=== PATIENT | male | born 1980 | race African-American/Black ===

== ENCOUNTER 2018-03-10 22:44 | Emergency (ER) | payer MEDICAID ==
[~2018-03-10] VITALS: Ht 177.8 cm; Wt 104.3 kg
[~2018-03-10 22:44] MED LIST: METR500T8 PO; PEPTO PO; RANI-281 PO; TETR500C PO
[2018-03-10 22:53] VITALS: BP_SYST 144
[2018-03-10] MEDS ORDERED: NACL 0.9% 1,000 ML IV ONE (22:54)
[2018-03-10] MEDS ORDERED: ASPIRIN 81 MG TAB.CHEW PO ONE (23:00)
[2018-03-10] MEDS ORDERED: LORazepam 2 MG/ML VIAL (FOR ER USE) IVP ONE (23:15)
[2018-03-10] MEDS ORDERED: ONDANSETRON HCL 4 MG/2 ML VIAL IVP ONE (23:30)
[2018-03-11 00:06] LABS: BASOPHILS # (AUTO) 0.1 K/uL (0.0-0.2); BASOPHILS % (AUTO) 0.6 % (0.0-2.0); EOSINOPHILS % (AUTO) 0.2 % (0.0-4.0); HEMOGLOBIN 16.5 g/dL (14.0-18.0); LYMPHOCYTES # (AUTO) 1.1 K/uL (1.0-5.5); LYMPHOCYTES % (AUTO) 6.9 % (20.5-51.5); MEAN CORPUSCULAR HEMOGLOBIN 30 pg (27-31); MEAN CORPUSCULAR HGB CONC 34 % (32-36); MEAN CORPUSCULAR VOLUME 87 fL (79.0-98.0); MONOCYTES # (AUTO) 0.2 K/uL (0.0-1.0); MONOCYTES % (AUTO) 1.5 % (1.7-9.3); NEUTROPHILS % (AUTO) 90.8 % (40.0-70.0); PLATELET COUNT (AUTO) 310 K/uL (130-430); RED BLOOD CELL COUNT(AUTO) 5.49 MIL/uL (4.2-6.2); RED CELL DISTRIBUTION WIDTH 12.8 % (9.0-15.0); WHITE BLOOD COUNT (AUTO) 15.4 K/uL (4.8-10.8)
[2018-03-11 00:36] LABS: ANION GAP 12 (5-15); CHLORIDE 103 mmol/L (98-107); CREATININE 1.09 mg/dL (0.55-1.30); GLUCOSE 194 mg/dL (70-99); SODIUM SERUM 140 mmol/L (136-145); UREA NITROGEN, BLOOD 13 mg/dL (8-21)
[2018-03-11 00:47] LABS: ALANINE AMINOTRANSFERASE 51 U/L (12-78); ALBUMIN 4.1 g/dL (3.4-4.8); ASPARTATE AMINOTRANSFERASE 31 U/L (10-37); TOTAL BILIRUBIN 0.6 mg/dL (0.0-1.0)
[2018-03-11 00:49] LABS: GFR AFRICAN AMERICAN 97 mL/min (>90); POTASSIUM 2.9 mmol/L (3.5-5.1)
[2018-03-11] MEDS ORDERED: POTASSIUM CHLORIDE 20 MEQ TAB.PRT.SR PO ONE (01:00)
[2018-03-11] MEDS ORDERED: LORazepam 2 MG/ML VIAL (FOR ER USE) IVP ONE (02:45)
[2018-03-11 03:21] VITALS: BP_SYST 139
== END 2018-03-11 03:21 | disposition home or self-care (01) ==
LOC: SED 22:44
DX: F45.8 Other somatoform disorders (principal); R10.32 Left lower quadrant pain; Z79.899 Other long term (current) drug therapy
CPT/HCPCS: 36415; 71045; 74176; 76870; 80053; 84484; 85025; 85610; 85730; 93005 ×2; 96374; 96375; 96376; 99285; J2060 ×2; J2405; J7030

== ENCOUNTER 2018-08-16 11:34 | Emergency (ER) | payer SELFPAY ==
[~2018-08-16] VITALS: Ht 180.3 cm; Wt 104.3 kg
[~2018-08-16 11:34] MED LIST changes: +METR500T4 PO; -METR500T8 PO
[2018-08-16 11:42] VITALS: BP_SYST 167
[2018-08-16] MEDS ORDERED: KETOROLAC TROMETHAMINE 60 MG/2 ML VIAL IM ONE (12:15)
[2018-08-16] MEDS ORDERED: cloNIDine HCL 0.1 MG TABLET PO ONE (12:30)
[2018-08-16 12:45] LABS: BASOPHILS % (AUTO) 0.8 % (0.0-2.0); EOSINOPHILS % (AUTO) 0.8 % (0.0-4.0); HEMATOCRIT 45.8 % (36-54); HEMOGLOBIN 15.6 g/dL (14.0-18.0); LYMPHOCYTES # (AUTO) 1.7 K/uL (1.0-5.5); LYMPHOCYTES % (AUTO) 26.9 % (20.5-51.5); MEAN CORPUSCULAR HEMOGLOBIN 30 pg (27-31); MEAN CORPUSCULAR HGB CONC 34 % (32-36); MEAN CORPUSCULAR VOLUME 87 fL (79.0-98.0); MONOCYTES # (AUTO) 0.5 K/uL (0.0-1.0); MONOCYTES % (AUTO) 8.1 % (1.7-9.3); NEUTROPHILS % (AUTO) 63.4 % (40.0-70.0); PLATELET COUNT (AUTO) 279 K/uL (130-430); RED BLOOD CELL COUNT(AUTO) 5.28 MIL/uL (4.2-6.2); RED CELL DISTRIBUTION WIDTH 12.5 % (9.0-15.0); WHITE BLOOD COUNT (AUTO) 6.2 K/uL (4.8-10.8)
[2018-08-16 13:00] LABS: CALCIUM 8.5 mg/dL (8.4-11.0); CREATININE 1.08 mg/dL (0.55-1.30); POTASSIUM 3.3 mmol/L (3.5-5.1)
[2018-08-16 13:06] LABS: ALBUMIN 3.7 g/dL (3.4-4.8); TOTAL BILIRUBIN 0.5 mg/dL (0.0-1.0)
[2018-08-16 13:36] LABS: CKMB RELATIVE INDEX 0.4 (0.0-2.9); CREATINE KINASE MB 2.9 ng/mL (0-3.6)
[2018-08-16 13:57] VITALS: BP_SYST 154
== END 2018-08-16 13:57 | disposition home or self-care (01) ==
LOC: SED 11:34
DX: R07.89 Other chest pain (principal); I10 Essential (primary) hypertension; F17.200 Nicotine dependence, unspecified, uncomplicated; Z79.899 Other long term (current) drug therapy
CPT/HCPCS: 36415; 71045; 80053; 82550; 82553; 83880; 84484; 85025; 96372; 99283; J1885; 93005

== ENCOUNTER 2019-04-16 19:42 | Inpatient (IN) | payer OTHER ==
[~2019-04-16] VITALS: Ht 180.3 cm; Wt 99.5 kg
[~2019-04-16 19:42] MED LIST changes: +METR-154 PO; -METR500T4 PO; +TETR-65 PO; -TETR500C PO
[2019-04-16 19:56] VITALS: BP_SYST 204
[2019-04-16] MEDS ORDERED: ASPIRIN 81 MG TAB.CHEW PO ONE ×2 (20:00→20:45)
[2019-04-16] MEDS ORDERED: NITROGLYCERIN 0.4 MG TAB.SUBL SL ONE (20:00)
[2019-04-16] MEDS ORDERED: ASPIRIN 325 MG TABLET PO ONE (20:00)
[2019-04-16 20:17] LABS: BASOPHILS # (AUTO) 0.1 K/uL (0.0-0.2); BASOPHILS % (AUTO) 0.4 % (0.0-2.0); HEMATOCRIT 47.6 % (36-54); HEMOGLOBIN 16.3 g/dL (14.0-18.0); LYMPHOCYTES # (AUTO) 0.9 K/uL (1.0-5.5); LYMPHOCYTES % (AUTO) 7.3 % (20.5-51.5); MEAN CORPUSCULAR HEMOGLOBIN 30 pg (27-31); MEAN CORPUSCULAR HGB CONC 34 % (32-36); MEAN CORPUSCULAR VOLUME 88 fL (79.0-98.0); MONOCYTES # (AUTO) 0.2 K/uL (0.0-1.0); MONOCYTES % (AUTO) 1.5 % (1.7-9.3); NEUTROPHILS # (AUTO) 10.9 K/uL (1.8-7.7); NEUTROPHILS % (AUTO) 90.8 % (40.0-70.0); PLATELET COUNT (AUTO) 298 K/uL (130-430); RED BLOOD CELL COUNT(AUTO) 5.42 MIL/uL (4.2-6.2); RED CELL DISTRIBUTION WIDTH 13.7 % (9.0-15.0)
[2019-04-16] MEDS ORDERED: MORPHINE 2 MG/ML INJ. SYRINGE IVP ONE ×2 (20:30→20:45)
[2019-04-16 20:34] LABS: ALBUMIN 4.2 g/dL (3.4-4.8); CALCIUM 9.2 mg/dL (8.4-11.0); CREATININE 1.16 mg/dL (0.55-1.30); POTASSIUM 3.3 mmol/L (3.5-5.1); PROTHROMBIN TIME 9.8 SECS (9.5-12.5); TOTAL BILIRUBIN 0.5 mg/dL (0.0-1.0)
[2019-04-16] MEDS ORDERED: ONDANSETRON HCL 4 MG/2 ML VIAL IVP ONE (20:45)
[2019-04-16] MEDS ORDERED: ASPIRIN 81 MG TAB.CHEW ONE (20:53)
[2019-04-16 20:57] LABS: CKMB RELATIVE INDEX 0.6 (0.0-2.9); CREATINE KINASE MB 3.4 ng/mL (0-3.6)
[2019-04-16] MEDS ORDERED: NACL 0.9% 1,000 ML IV ONE (21:45)
[2019-04-16] MEDS ORDERED: MORPHINE 4 MG/ML INJ. SYRINGE IVP ONE (21:45)
[2019-04-16] MEDS ORDERED: AMLO5TAB4 PO (23:44)
[2019-04-17] VITALS (7 sets, daily range): BP systolic 144–190
[2019-04-17] MEDS ORDERED: fentaNYL CITRATE/PF 100 MCG/2 ML AMP IVP ONE (00:30)
[2019-04-17 00:32] LABS: BILIRUBIN,URINE NEGATIVE (NEGATIVE); BLOOD, URINE 1+ (NEGATIVE); CLARITY/URINE HAZY (CLEAR); COLOR,URINE YELLOW (YELLOW); GLUCOSE,URINE 1+ (NEGATIVE); KETONES,URINE 2+ (NEGATIVE); LEUKOCYTE ESTERASE ,URINE NEGATIVE (NEGATIVE); NITRITE, URINE NEGATIVE (NEGATIVE); PH,URINE 7.5 (5.0-8.0); PROTEIN URINE TRACE (NEGATIVE); UROBILINOGEN,URINE 0.2 (0.2-1.0)
[2019-04-17 00:42] LABS: BACTERIA,URINE MODERATE /HPF (None Seen); WBC,URINE 0-3 /HPF (0-3)
[2019-04-17 01:05] LABS: BARBITURATE, URINE NEGATIVE (NEG <=200); BENZODIAZEPINE, URINE NEGATIVE (NEG <=150); CANNABINOID, URINE POSITIVE (NEG <=50); COCAINE, URINE NEGATIVE (NEG <=150); METHAMPHETAMINES SCREEN,URINE NEGATIVE (NEG <=500); OPIATE, URINE NEGATIVE (NEG <=100); PHENCYCLIDINE SCREEN,URINE NEGATIVE (NEG <=25); UR TRICYCLIC ANTIDEPRESSANTS NEGATIVE (NEG <=300); URINE AMPHETAMINE NEGATIVE (NEG <=500); URINE METHADONE NEGATIVE (NEG <=200); URINE OXYCODONE SCREEN NEGATIVE (NEG <=100); URINE PROPOXYPHENE SCREEN NEGATIVE (NEG <=300)
[2019-04-17] MEDS ORDERED: hydrALAZINE HCL 20 MG/ML VIAL IVP ONE (01:15)
[2019-04-17] MEDS: MORPHINE 4 MG/ML INJ. SYRINGE IVP PRN ×2 (02:10→08:15)
[2019-04-17] MEDS: cloNIDine HCL 0.1 MG TABLET PO PRN ×2 (02:10→12:08)
[2019-04-17] MEDS ORDERED: PANTOPRAZOLE SODIUM 40 MG/VIAL (PROTONIX) IVP ONE (04:00)
[2019-04-17] MEDS ORDERED: ONDANSETRON HCL 4 MG/2 ML VIAL IVP PRN (04:00)
[2019-04-17] MEDS: amLODIPine BESYLATE 10 MG TABLET PO SCH (09:11)
[2019-04-17] MEDS: LISINOPRIL 10 MG TABLET (PRINIVIL) PO SCH (09:11)
[2019-04-17] MEDS ORDERED: MAG-AL HYDROX/SIMETH 30 ML UDC PO ONE (10:00)
[2019-04-17] MEDS ORDERED: MAG-AL HYDROX/SIMETH 30 ML UDC ONE (10:17)
[2019-04-17] MEDS: MAG-AL HYDROX/SIMETH 30 ML UDC PO PRN ×2 (10:29→20:58)
[2019-04-17 10:37] LABS: BASOPHILS % (AUTO) 0.2 % (0.0-2.0); HEMATOCRIT 47.6 % (36-54); HEMOGLOBIN 16.3 g/dL (14.0-18.0); LYMPHOCYTES # (AUTO) 1.4 K/uL (1.0-5.5); LYMPHOCYTES % (AUTO) 8.5 % (20.5-51.5); MEAN CORPUSCULAR HEMOGLOBIN 30 pg (27-31); MEAN CORPUSCULAR HGB CONC 34 % (32-36); MEAN CORPUSCULAR VOLUME 88 fL (79.0-98.0); MONOCYTES % (AUTO) 6.1 % (1.7-9.3); NEUTROPHILS # (AUTO) 13.9 K/uL (1.8-7.7); NEUTROPHILS % (AUTO) 85.2 % (40.0-70.0); PLATELET COUNT (AUTO) 291 K/uL (130-430); RED BLOOD CELL COUNT(AUTO) 5.39 MIL/uL (4.2-6.2); RED CELL DISTRIBUTION WIDTH 13.7 % (9.0-15.0); WHITE BLOOD COUNT (AUTO) 16.3 K/uL (4.8-10.8)
[2019-04-17 10:49] LABS: CREATININE 1.11 mg/dL (0.55-1.30); POTASSIUM 3.1 mmol/L (3.5-5.1)
[2019-04-17] MEDS ORDERED: POTASSIUM CHLORIDE 20 MEQ TAB.PRT.SR PO ONE (11:30)
[2019-04-17] MEDS: POTASSIUM CHLORIDE 20 MEQ TAB.PRT.SR PO SCH (20:58)
[2019-04-18 01:40] VITALS: BP_SYST 124
[2019-04-18 05:56] LABS: BASOPHILS % (AUTO) 0.3 % (0.0-2.0); EOSINOPHILS % (AUTO) 0.2 % (0.0-4.0); HEMATOCRIT 47.6 % (36-54); HEMOGLOBIN 16.1 g/dL (14.0-18.0); LYMPHOCYTES # (AUTO) 2.7 K/uL (1.0-5.5); LYMPHOCYTES % (AUTO) 22.7 % (20.5-51.5); MEAN CORPUSCULAR HEMOGLOBIN 30 pg (27-31); MEAN CORPUSCULAR HGB CONC 34 % (32-36); MEAN CORPUSCULAR VOLUME 89 fL (79.0-98.0); MONOCYTES # (AUTO) 1.1 K/uL (0.0-1.0); MONOCYTES % (AUTO) 9.5 % (1.7-9.3); NEUTROPHILS # (AUTO) 7.9 K/uL (1.8-7.7); NEUTROPHILS % (AUTO) 67.3 % (40.0-70.0); PLATELET COUNT (AUTO) 287 K/uL (130-430); RED BLOOD CELL COUNT(AUTO) 5.34 MIL/uL (4.2-6.2); RED CELL DISTRIBUTION WIDTH 13.5 % (9.0-15.0); WHITE BLOOD COUNT (AUTO) 11.8 K/uL (4.8-10.8)
[2019-04-18 06:13] LABS: CALCIUM 9.2 mg/dL (8.4-11.0); CHLORIDE 102 mmol/L (98-107); GLUCOSE 132 mg/dL (70-99); POTASSIUM 3.1 mmol/L (3.5-5.1); SODIUM SERUM 135 mmol/L (136-145)
[2019-04-18 06:14] LABS: ALANINE AMINOTRANSFERASE 30 U/L (12-78); ALBUMIN 3.8 g/dL (3.4-4.8); ASPARTATE AMINOTRANSFERASE 19 U/L (10-37); CHOLESTEROL 194 mg/dL (<200); CREATININE 1.34 mg/dL (0.55-1.30); FREE T4 (FREE THYROXINE) 0.7 ng/dL (0.6-1.6); GFR AFRICAN AMERICAN 76 mL/min (>90); HDL CHOLESTEROL 39 mg/dL (>45); LDL CHOLESTEROL 125 mg/dL (<100); THYROID STIMULATING HORMONE 0.35 uIu/mL (0.34-4.82); TOTAL BILIRUBIN 0.7 mg/dL (0.0-1.0); TRIGLYCERIDES 105 mg/dL (30-150); UREA NITROGEN, BLOOD 16 mg/dL (8-21)
[2019-04-18 06:15] LABS: ANION GAP < 3 (5-15)
[2019-04-18 07:51] VITALS: BP_SYST 162
[2019-04-18] MEDS: LISINOPRIL 10 MG TABLET (PRINIVIL) PO SCH (08:05)
[2019-04-18] MEDS: amLODIPine BESYLATE 10 MG TABLET PO SCH (08:06)
[2019-04-18] MEDS: MAG-AL HYDROX/SIMETH 30 ML UDC PO PRN ×2 (08:08→14:30)
[2019-04-18] MEDS: POTASSIUM CHLORIDE 20 MEQ TAB.PRT.SR PO SCH (08:08)
[2019-04-18] MEDS ORDERED: POTASSIUM CHLORIDE 20 MEQ TAB.PRT.SR PO ONE ×2 (08:45→16:30)
[2019-04-18] MEDS ORDERED: PANTOPRAZOLE SODIUM 40 MG/VIAL (PROTONIX) IVP SCH (09:00)
[2019-04-18] MEDS ORDERED: D5LR 1,000 ML IV SCH (10:30)
[2019-04-18] MEDS ORDERED: POTASSIUM CHLORIDE 40 MEQ, LIDOCAINE JECT 2% PF 100 MG 50 MG in NS 250 ML IV ONE (10:45)
[2019-04-18 12:00] VITALS: BP_SYST 148
[2019-04-18 12:08] VITALS: BP_SYST 156
[2019-04-18 15:56] LABS: CALCIUM 8.6 mg/dL (8.4-11.0); CREATININE 1.08 mg/dL (0.55-1.30); POTASSIUM 3.2 mmol/L (3.5-5.1)
[2019-04-18 16:28] VITALS: BP_SYST 156
[2019-04-18] MEDS ORDERED: BISACODYL 5 MG TABLET.DR (DULCOLAX) PO ONE (17:00)
[2019-04-18] MEDS ORDERED: GOLYTELY / COLYTE SOLUTION 4 LITERS PO ONE (18:00)
[2019-04-18] MEDS ORDERED: POTASSIUM CHLORIDE 20 MEQ TAB.PRT.SR PO SCH (21:00)
== END 2019-04-18 17:40 | disposition short-term general hospital (02) | DRG 392 ==
LOC: SED 19:42 → STU 04-17 01:20
PROVIDERS: ADMIT Internal Medicine; ATTEND Internal Medicine
DX: K21.9 Gastro-esophageal reflux disease without esophagitis (principal); I10 Essential (primary) hypertension; F17.210 Nicotine dependence, cigarettes, uncomplicated; K57.90 Diverticulosis of intestine, part unspecified, without perforation or abscess without bleeding; E66.9 Obesity, unspecified; F12.90 Cannabis use, unspecified, uncomplicated; E87.6 Hypokalemia; K40.90 Unilateral inguinal hernia, without obstruction or gangrene, not specified as recurrent; Z79.899 Other long term (current) drug therapy; Z82.49 Family history of ischemic heart disease and other diseases of the circulatory system; Z68.30 Body mass index [BMI] 30.0-30.9, adult; Z91.19 Patient's noncompliance with other medical treatment and regimen
CPT/HCPCS: 36415; 71045; 71250-TC; 76870-TC; 80048; 80053; 80061; 80307; 81000-TC; 82550-TC; 82553-TC; 83605; 83735-TC; 83880; 84439; 84443-TC; 84484; 85025; 85379; 85610-TC; 87040-TC; 87086; 93005; 93306; 96374; 96375; 96376; 99285; C9113; G0378; J0360; J2270; J2405; J3010; J3480; J7050; J7120

== ENCOUNTER 2020-02-10 08:43 | Emergency (ER) | payer OTHER ==
[~2020-02-10] VITALS: Ht 177.8 cm; Wt 102.1 kg
[2020-02-10 08:43] VITALS: BP_SYST 184
[~2020-02-10 08:43] MED LIST changes: +AMLO5TAB4 PO; -METR-154 PO; -PEPTO PO; -RANI-281 PO; -TETR-65 PO
--- NOTE | 2020-02-10 08:43 | NUR ---
Placed in room 3. Placed on bus driver/monitor, blood pressure machine and pulse oximeter. To gown for exam. Side rails up. Report given to TABATHA Sullivan.
--- NOTE | 2020-02-10 08:45 | NUR ---
Patient arrived in the ED c/o vomiting, nausea, abdominal pain, and non-stop hiccups that started last night. Denied any chest pain or shortness of breath. Denied any fevers and chills. Patient is alert and oriented x4, respirations even and unlabored, speaking in full sentences, and ambulating with a steady gait. VSS, pain level 10/10 - Not taking any pain medication. Informed of the approximate wait time. Instructed to notify ED staff for any changes in condition or worsening of symptoms while waiting to be seen by an ED provider. Patient verbalized understanding.
--- NOTE | 2020-02-10 08:47 | NUR ---
ER Dr. Boudreaux at bedside examining patient.
--- NOTE | 2020-02-10 08:50 | NUR ---
# 18 gauge angiocath placed to RAC using asceptic technique per facility protocol. Opsite placed over site. Blood return noted. Flushed with 10 mL of sterile normal saline. No evidence of infiltration noted. Patient tolerated well.
--- NOTE | 2020-02-10 08:58 | NUR ---
Administered Zofran, Morphine Sulfate IVP and NS as ordered by Dr. Boudreaux. Patient tolerated the medications well. See eMAR for details.
[2020-02-10] MEDS ORDERED: MORPHINE 2 MG/ML INJ. SYRINGE IVP ONE ×3 (09:00→12:00)
[2020-02-10] MEDS ORDERED: ONDANSETRON HCL 4 MG/2 ML VIAL IVP ONE (09:00)
[2020-02-10] MEDS ORDERED: NACL 0.9% 1,000 ML IV ONE (09:00)
[2020-02-10 09:24] LABS: BASOPHILS % (AUTO) 0.2 % (0.0-2.0); HEMATOCRIT 52.4 % (36-54); HEMOGLOBIN 17.7 g/dL (14.0-18.0); LYMPHOCYTES # (AUTO) 1.7 K/uL (1.0-5.5); LYMPHOCYTES % (AUTO) 10.3 % (20.5-51.5); MEAN CORPUSCULAR HEMOGLOBIN 30 pg (27-31); MEAN CORPUSCULAR HGB CONC 34 % (32-36); MEAN CORPUSCULAR VOLUME 88 fL (79.0-98.0); MONOCYTES # (AUTO) 1.1 K/uL (0.0-1.0); MONOCYTES % (AUTO) 6.6 % (1.7-9.3); NEUTROPHILS # (AUTO) 13.5 K/uL (1.8-7.7); NEUTROPHILS % (AUTO) 82.9 % (40.0-70.0); PLATELET COUNT (AUTO) 315 K/uL (130-430); RED BLOOD CELL COUNT(AUTO) 5.99 MIL/uL (4.2-6.2); RED CELL DISTRIBUTION WIDTH 13.9 % (9.0-15.0); WHITE BLOOD COUNT (AUTO) 16.3 K/uL (4.8-10.8)
--- NOTE | 2020-02-10 09:30 | NUR ---
Administered Morphine Sulfate IVP as ordered by Dr. Boudreaux. Patient tolerated the medications well. See eMAR for details.
[2020-02-10 09:33] LABS: CALCIUM 8.9 mg/dL (8.4-11.0); CREATININE 1.28 mg/dL (0.55-1.30)
[2020-02-10 09:35] LABS: PROTHROMBIN TIME 10.2 SECS (9.5-12.5)
[2020-02-10 09:44] LABS: ALBUMIN 4.4 g/dL (3.4-4.8); POTASSIUM 2.7 mmol/L (3.5-5.1); TOTAL BILIRUBIN 0.7 mg/dL (0.0-1.0)
[2020-02-10] MEDS ORDERED: KCL 40mEq in D5/0.45NS 1000 mL 1,000 ML IV ONE (09:45)
--- NOTE | 2020-02-10 09:50 | NUR ---
Administered D5/0.45NS with 40mEq KCL as ordered by Dr. Boudreaux. Patient tolerated the medications well. See eMAR for details.
[2020-02-10] MEDS ORDERED: cefTRIAXone 1 GM in D5W 50 ML IV ONE (10:00)
[2020-02-10] MEDS ORDERED: KETOROLAC TROMETHAMINE 30 MG VIAL IVP ONE (10:00)
[2020-02-10] MEDS ORDERED: NACL 0.9% 2,000 ML IV ONE (10:00)
--- NOTE | 2020-02-10 10:10 | NUR ---
# 18 gauge angiocath placed to LAC. Use of asceptic technique. Opsite placed over site. Blood return noted. Flushed with 10 cc of normal saline. No evidence of infiltration noted. Patient tolerated well.
[2020-02-10] MEDS ORDERED: cefTRIAXone 1 GM VIAL ONE (10:17)
--- NOTE | 2020-02-10 10:37 | NUR ---
Patient provided urine specimen using a urinal as ordered by Dr. Boudreaux.
[2020-02-10 10:45] LABS: BILIRUBIN,URINE NEGATIVE (NEGATIVE); BLOOD, URINE 1+ (NEGATIVE); CLARITY/URINE CLEAR (CLEAR); COLOR,URINE YELLOW (YELLOW); GLUCOSE,URINE NEGATIVE (NEGATIVE); KETONES,URINE TRACE (NEGATIVE); LEUKOCYTE ESTERASE ,URINE NEGATIVE (NEGATIVE); NITRITE, URINE NEGATIVE (NEGATIVE); PROTEIN URINE NEGATIVE (NEGATIVE); UROBILINOGEN,URINE 0.2 (0.2-1.0)
[2020-02-10 10:52] LABS: BACTERIA,URINE FEW /HPF (None Seen); WBC,URINE 0-3 /HPF (0-3)
--- NOTE | 2020-02-10 11:02 | NUR ---
Patient is resting comfortably in bed, respirations even and unlabored, speaking in full sentences. No signs and symptoms of IV infiltration.
--- NOTE | 2020-02-10 11:05 | NUR ---
Patient used the urinal at bedside.
--- NOTE | 2020-02-10 11:30 | NUR ---
Patient used the urinal at bedside.
[2020-02-10] MEDS ORDERED: hydrALAZINE HCL 20 MG/ML VIAL IVP ONE (11:45)
[2020-02-10] MEDS ORDERED: DIPHENHYDRAMINE INJ 50 MG/ML VIAL IVP ONE (12:00)
--- NOTE | 2020-02-10 12:17 | NUR ---
Patient used the urinal at bedside.
[2020-02-10 12:19] LABS: BARBITURATE, URINE NEGATIVE (NEG <=200); BENZODIAZEPINE, URINE NEGATIVE (NEG <=150); CANNABINOID, URINE POSITIVE (NEG <=50); COCAINE, URINE NEGATIVE (NEG <=150); METHAMPHETAMINES SCREEN,URINE NEGATIVE (NEG <=500); OPIATE, URINE POSITIVE (NEG <=100); PHENCYCLIDINE SCREEN,URINE NEGATIVE (NEG <=25); UR TRICYCLIC ANTIDEPRESSANTS NEGATIVE (NEG <=300); URINE AMPHETAMINE NEGATIVE (NEG <=500); URINE METHADONE NEGATIVE (NEG <=200); URINE OXYCODONE SCREEN NEGATIVE (NEG <=100); URINE PROPOXYPHENE SCREEN NEGATIVE (NEG <=300)
--- NOTE | 2020-02-10 12:43 | NUR ---
technical sales engineer at bedside collecting blood specimen as ordered by Dr. Boudreaux. Patient tolerated the procedure well.
[2020-02-10] MEDS ORDERED: NITROGLYCERIN 1 INCH (GM) OINT. TP ONE (13:15)
[2020-02-10] MEDS ORDERED: ASPIRIN 81 MG TAB.CHEW PO ONE (13:15)
--- NOTE | 2020-02-10 13:20 | NUR ---
Patient resting comfortably in bed. No acute distress noted. Respirations even and unlabored. Vital signs within normal range.
--- NOTE | 2020-02-10 14:10 | NUR ---
Patient resting comfortably in bed. No acute distress noted. Respirations even and unlabored. Vital signs within normal range.
--- NOTE | 2020-02-10 14:45 | NUR ---
Patient used the urinal at bedside.
[2020-02-10] MEDS ORDERED: METOPROLOL TARTRATE 5 MG/5 ML VIAL IVP ONE ×2 (15:30→17:15)
--- NOTE | 2020-02-10 15:33 | NUR ---
Report given and care transferred to TABATHA Baltazar.
--- NOTE | 2020-02-10 15:39 | NUR ---
Patient bp currently 197/104, HR: 76 RR: 20 O2: 97%. Patient given Lopressor 5mg IVP. Will re-evaulate
[2020-02-10] MEDS ORDERED: HALOPERIDOL LACTATE 5 MG/ML VIAL IVP ONE (15:45)
--- NOTE | 2020-02-10 16:13 | NUR ---
HR now 80 BP 190/95 RR 17 O2 97%. MD notified Patient tolerating well.
--- NOTE | 2020-02-10 17:00 | NUR ---
Patient resting quietly. No acute distress noted. Vital signs within normal range.
--- NOTE | 2020-02-10 17:13 | NUR ---
Patient to be transferred to [facility]. Is being transferred due to higher level of care. Receiving facility has accepting physician and available space. ER physician has signed transfer form. Patient or responsible democrat has agreed to transfer and signed form. Patient belongings inventoried and will be sent with patient. Copy of nursing notes, lab reports, EKG, Physicians Orders and X-rays to be sent with patient. Report called to TABATHA Zaldivar at receiving facility. Receiving physician is Dr. Cloud. [facility] ambulance service has been called for transfer. ETA is 1700
[2020-02-10 17:32] VITALS: BP_SYST 186
--- NOTE | 2020-02-10 17:32 | NUR ---
REPORT GIVEN TO EMBEDDED SOFTWARE DEVELOPER DIANNA, VITALS SIGNS IN STABLE CONDITION. NO ACUTE DISTRESS NOTED.
== END 2020-02-10 17:32 | disposition short-term general hospital (02) ==
LOC: SED 08:43
DX: N20.0 Calculus of kidney (principal); R79.89 Other specified abnormal findings of blood chemistry; F12.10 Cannabis abuse, uncomplicated; R11.2 Nausea with vomiting, unspecified
CPT/HCPCS: 36415; 71045; 74176; 80053; 80307; 81000; 83605; 83690; 84484; 85025; 85610; 85730; 87040; 87086; 93005; 96365; 96375; 96376; 99285; J0360; J0696; J1200; J1630; J1885; J2270; J2405; J3490; J7030

== ENCOUNTER 2020-03-30 11:05 | Emergency (ER) | payer OTHER ==
[~2020-03-30] VITALS: Ht 182.9 cm; Wt 120.2 kg
[2020-03-30 11:18] VITALS: BP_SYST 179
[2020-03-30 11:59] LABS: BASOPHILS % (AUTO) 0.4 % (0.0-2.0); HEMATOCRIT 49.9 % (36-54); HEMOGLOBIN 16.6 g/dL (14.0-18.0); LYMPHOCYTES # (AUTO) 0.6 K/uL (1.0-5.5); LYMPHOCYTES % (AUTO) 5.6 % (20.5-51.5); MEAN CORPUSCULAR HEMOGLOBIN 30 pg (27-31); MEAN CORPUSCULAR HGB CONC 33 % (32-36); MEAN CORPUSCULAR VOLUME 89 fL (79.0-98.0); MONOCYTES # (AUTO) 0.2 K/uL (0.0-1.0); MONOCYTES % (AUTO) 1.8 % (1.7-9.3); NEUTROPHILS # (AUTO) 10.5 K/uL (1.8-7.7); NEUTROPHILS % (AUTO) 92.2 % (40.0-70.0); PLATELET COUNT (AUTO) 331 K/uL (130-430); RED BLOOD CELL COUNT(AUTO) 5.64 MIL/uL (4.2-6.2); RED CELL DISTRIBUTION WIDTH 13.9 % (9.0-15.0); WHITE BLOOD COUNT (AUTO) 11.3 K/uL (4.8-10.8)
[2020-03-30 12:24] LABS: CALCIUM 9.4 mg/dL (8.4-11.0); CREATININE 1.06 mg/dL (0.55-1.30); POTASSIUM 3.2 mmol/L (3.5-5.1)
[2020-03-30 12:25] LABS: ALBUMIN 4.7 g/dL (3.4-4.8); TOTAL BILIRUBIN 0.4 mg/dL (0.0-1.0)
[2020-03-30] MEDS: DIPHENHYDRAMINE INJ 50 MG/ML VIAL IVP ONE (12:42)
[2020-03-30] MEDS: HALOPERIDOL LACTATE 5 MG/ML VIAL IVP ONE (12:44)
[2020-03-30] MEDS: KETOROLAC TROMETHAMINE 30 MG VIAL IVP ONE (12:46)
[2020-03-30 13:04] VITALS: BP_SYST 149
== END 2020-03-30 13:04 | disposition home or self-care (01) ==
LOC: SED 11:05
DX: F12.988 Cannabis use, unspecified with other cannabis-induced disorder (principal); R10.13 Epigastric pain; R11.2 Nausea with vomiting, unspecified; I10 Essential (primary) hypertension
CPT/HCPCS: 36415; 80053; 83690; 85025; 93005; 96374; 96375; 99284; J1200; J1630; J1885

== ENCOUNTER 2020-08-13 11:56 | Emergency (ER) | payer OTHER ==
[~2020-08-13] VITALS: Ht 177.8 cm; Wt 117.9 kg
[2020-08-13 11:56] VITALS: BP_SYST 173
--- NOTE | 2020-08-13 11:56 | NUR ---
BROUGHT IN BY [facility], PT AWAITING OPEN BED, PT WAITING ON AMBULANCE RAMP.
[2020-08-13 13:07] LABS: BASOPHILS # (AUTO) 0.1 K/uL (0.0-0.2); BASOPHILS % (AUTO) 0.7 % (0.0-2.0); HEMATOCRIT 49.7 % (36-54); HEMOGLOBIN 16.7 g/dL (14.0-18.0); LYMPHOCYTES # (AUTO) 0.9 K/uL (1.0-5.5); LYMPHOCYTES % (AUTO) 5.9 % (20.5-51.5); MEAN CORPUSCULAR HEMOGLOBIN 29 pg (27-31); MEAN CORPUSCULAR HGB CONC 34 % (32-36); MEAN CORPUSCULAR VOLUME 87 fL (79.0-98.0); MONOCYTES # (AUTO) 0.3 K/uL (0.0-1.0); NEUTROPHILS # (AUTO) 14.7 K/uL (1.8-7.7); NEUTROPHILS % (AUTO) 91.4 % (40.0-70.0); PLATELET COUNT (AUTO) 331 K/uL (130-430); RED CELL DISTRIBUTION WIDTH 13.5 % (9.0-15.0); WHITE BLOOD COUNT (AUTO) 16.1 K/uL (4.8-10.8)
[2020-08-13 13:13] LABS: ANION GAP 8 (5-15); CALCIUM 9.2 mg/dL (8.4-11.0); CHLORIDE 101 mmol/L (98-107); CREATININE 0.98 mg/dL (0.55-1.30); GLUCOSE 178 mg/dL (70-99); POTASSIUM 3.5 mmol/L (3.5-5.1); SODIUM SERUM 137 mmol/L (136-145); UREA NITROGEN, BLOOD 8 mg/dL (8-21)
[2020-08-13 13:14] LABS: GFR AFRICAN AMERICAN 108 mL/min (>90)
[2020-08-13 13:21] LABS: ALANINE AMINOTRANSFERASE 58 U/L (12-78); ALBUMIN 4.7 g/dL (3.4-4.8); ASPARTATE AMINOTRANSFERASE 32 U/L (10-37); LIPASE 60 U/L (73-393); TOTAL BILIRUBIN 0.5 mg/dL (0.0-1.0)
--- NOTE | 2020-08-13 16:05 | NUR ---
Pt bib EMS from home with c/o abdominal pain 06/13 since this morning. Denies n/v at this time. Pt is afebrile, v/s stable. Currently resting in bed, will continue to monitor.
--- NOTE | 2020-08-13 16:10 | NUR ---
ER Dr. Mares at bedside examining patient.
[2020-08-13] MEDS ORDERED: MORPHINE 4 MG/ML INJ. SYRINGE IVP ONE (16:15)
--- NOTE | 2020-08-13 16:20 | NUR ---
# 20 gauge angiocath placed to LAC. Use of asceptic technique. Opsite placed over site. Blood return noted. Flushed with 10 cc of normal saline. No evidence of infiltration noted. Patient tolerated well.
[2020-08-13 16:27] VITALS: BP_SYST 173
[2020-08-13 17:14] LABS: BILIRUBIN,URINE NEGATIVE (NEGATIVE); BLOOD, URINE 2+ (NEGATIVE); CLARITY/URINE CLEAR (CLEAR); COLOR,URINE YELLOW (YELLOW); GLUCOSE,URINE 1+ (NEGATIVE); KETONES,URINE 1+ (NEGATIVE); LEUKOCYTE ESTERASE ,URINE NEGATIVE (NEGATIVE); NITRITE, URINE NEGATIVE (NEGATIVE); PH,URINE 8.5 (5.0-8.0); PROTEIN URINE TRACE (NEGATIVE); UROBILINOGEN,URINE 0.2 (0.2-1.0)
--- NOTE | 2020-08-13 17:35 | NUR ---
Per Dr. Mares, pt's CT and labs negative, ok to have pt wait in waiting room for discharge orders.
[2020-08-13 17:37] LABS: BACTERIA,URINE None Seen /HPF (None Seen); TRICHOMONAS,URINE None Seen /HPF (None Seen); WBC,URINE NONE SEEN /HPF (0-3); YEAST,URINE None Seen /HPF (None Seen)
--- NOTE | 2020-08-13 18:15 | NUR ---
Pt eloped prior to speaking with MD and refused to wait for discharge paperwork. IV d/c'd with catheter intact, pressure dressing applied.
== END 2020-08-13 18:15 | disposition left against medical advice (07) ==
LOC: SED 11:56
DX: D72.829 Elevated white blood cell count, unspecified (principal); I10 Essential (primary) hypertension; F12.10 Cannabis abuse, uncomplicated
CPT/HCPCS: 36415; 74176; 76376; 80053; 81000; 83690; 84484; 85025; 93005; 96374; 99285; J2270

== ENCOUNTER 2023-02-09 11:54 | Emergency (ER) | payer MEDICAID, OTHER ==
[~2023-02-09] VITALS: Ht 177.8 cm; Wt 106.6 kg
[2023-02-09 12:21] VITALS: BP_SYST 175
--- NOTE | 2023-02-09 12:28 | NUR ---
PT BIB SELF AWAKE AND ALERT AOX4, NO SOB OR DISTRESS. PT C/O CHEST PAIN AND ABDOMINAL PAIN X4 DAYS. PT STATES PAIN 5/10. PT HAS HX OF DIVERTICULITIS. PT HAD GALLBLADER SX IN PAST.
--- NOTE | 2023-02-09 12:30 | NUR ---
MD DR COFFEY AT BEDSIDE
--- NOTE | 2023-02-09 12:30 | NUR ---
Placed in room 3 . Placed on monitoring and evaluation advisor, blood pressure machine and pulse oximeter. To gown for exam. Side rails up. Report given to
[2023-02-09] MEDS ORDERED: NACL 0.9% 1,000 ML IV ONE (12:45)
[2023-02-09] MEDS ORDERED: KETOROLAC TROMETHAMINE 30 MG VIAL IVP ONE (12:45)
[2023-02-09 13:03] LABS: BASOPHILS # (AUTO) 0.1 K/uL (0.0-0.2); EOSINOPHILS # (AUTO) 0.1 K/uL (0.0-0.4); EOSINOPHILS % (AUTO) 1.1 % (0.0-4.0); HEMATOCRIT 43.7 % (36-54); LYMPHOCYTES % (AUTO) 27.5 % (20.5-51.5); MEAN CORPUSCULAR HEMOGLOBIN 30 pg (27-31); MEAN CORPUSCULAR HGB CONC 34 % (32-36); MEAN CORPUSCULAR VOLUME 88 fL (79.0-98.0); MONOCYTES # (AUTO) 0.8 K/uL (0.0-1.0); MONOCYTES % (AUTO) 11.8 % (1.7-9.3); NEUTROPHILS # (AUTO) 4.2 K/uL (1.8-7.7); NEUTROPHILS % (AUTO) 58.6 % (40.0-70.0); PLATELET COUNT (AUTO) 272 K/uL (130-430); RED BLOOD CELL COUNT(AUTO) 4.98 MIL/uL (4.2-6.2); RED CELL DISTRIBUTION WIDTH 13.6 % (9.0-15.0); WHITE BLOOD COUNT (AUTO) 7.1 K/uL (4.8-10.8)
[2023-02-09 13:39] LABS: ALANINE AMINOTRANSFERASE 60 U/L (12-78); ALBUMIN 3.7 g/dL (3.4-4.8); ANION GAP 5 (5-15); ASPARTATE AMINOTRANSFERASE 36 U/L (10-37); CALCIUM 8.4 mg/dL (8.4-11.0); CHLORIDE 102 mmol/L (98-107); CREATININE 1.19 mg/dL (0.55-1.30); GFR AFRICAN AMERICAN 86 mL/min (>90); GLUCOSE 110 mg/dL (70-99); LIPASE 84 U/L (73-393); TOTAL BILIRUBIN 0.4 mg/dL (0.0-1.0); UREA NITROGEN, BLOOD 9 mg/dL (8-21)
--- NOTE | 2023-02-09 13:42 | NUR ---
CRITICAL LAB VALUE: POTASSIUM 2.9 REPORTED TO MD LAINEZ.
[2023-02-09] MEDS ORDERED: KCL 40 mEq in 100 mL (PREMIX) 100 ML IV ONE (13:45)
[2023-02-09 15:51] LABS: BILIRUBIN,URINE NEGATIVE (NEGATIVE); CLARITY/URINE CLEAR (CLEAR); COLOR,URINE YELLOW (YELLOW); GLUCOSE,URINE NEGATIVE (NEGATIVE); KETONES,URINE NEGATIVE (NEGATIVE); LEUKOCYTE ESTERASE ,URINE NEGATIVE (NEGATIVE); NITRITE, URINE NEGATIVE (NEGATIVE); PROTEIN URINE NEGATIVE (NEGATIVE); UROBILINOGEN,URINE 0.2 (0.2-1.0)
[2023-02-09 15:54] LABS: BLOOD, URINE TRACE (NEGATIVE)
[2023-02-09 16:21] LABS: BACTERIA,URINE RARE /HPF (None Seen)
[2023-02-09 16:36] LABS: BARBITURATE, URINE NEGATIVE (NEG <=200); BENZODIAZEPINE, URINE NEGATIVE (NEG <=150); CANNABINOID, URINE POSITIVE (NEG <=50); COCAINE, URINE NEGATIVE (NEG <=150); METHAMPHETAMINES SCREEN,URINE NEGATIVE (NEG <=500); OPIATE, URINE NEGATIVE (NEG <=100); PHENCYCLIDINE SCREEN,URINE NEGATIVE (NEG <=25); URINE AMPHETAMINE NEGATIVE (NEG <=500); URINE METHADONE NEGATIVE (NEG <=200); URINE OXYCODONE SCREEN NEGATIVE (NEG <=100); URINE PROPOXYPHENE SCREEN NEGATIVE (NEG <=300)
[2023-02-09 16:37] LABS: UR TRICYCLIC ANTIDEPRESSANTS NEGATIVE (NEG <=300)
[2023-02-09] MEDS ORDERED: DICY10CA13 PO (17:27)
[2023-02-09] MEDS ORDERED: ONDA-8 TL (17:27)
[2023-02-09 17:37] VITALS: BP_SYST 175
--- NOTE | 2023-02-09 17:38 | NUR ---
Patient given written and verbal discharge instructions and verbalizes understanding. ER MD DR REESE discussed with patient the results and treatment provided. Patient in stable condition. ID arm band removed. IV catheter removed intact and dressing applied, no active bleeding. Rx of DICYCLOMINE AND ZOFRAN given. Patient educated on pain management and to follow up with PMD. Pain Scale 4/10. Opportunity for questions provided and answered. Medication side effect fact sheet provided.
== END 2023-02-09 17:38 | disposition home or self-care (01) ==
LOC: SED 11:54
DX: R10.84 Generalized abdominal pain (principal); E87.6 Hypokalemia; I10 Essential (primary) hypertension; F17.200 Nicotine dependence, unspecified, uncomplicated; F12.90 Cannabis use, unspecified, uncomplicated; Z79.899 Other long term (current) drug therapy
CPT/HCPCS: 99285; 74176; 96365; 71045; 96366; 96361; 96375; 80307; 80053; 83690; 85025; 84484; 36415; 76376; 81000; G0482; J1885; J3480; J7030

== ENCOUNTER 2023-04-29 19:10 | Inpatient (IN) | payer MEDICAID ==
[~2023-04-29] VITALS: Ht 180.3 cm; Wt 108.0 kg
[~2023-04-29 19:10] MED LIST changes: +DICY10CA13 PO; +ONDA-8 TL
[2023-04-29 19:45] VITALS: BP_SYST 170; PULSE 89; RESP 16; TEMP 98.1; O2SAT 98
[2023-04-29] MEDS ORDERED: KETOROLAC TROMETHAMINE 15 MG VIAL IVP ONE (20:00)
[2023-04-29 20:20] LABS: BASOPHILS # (AUTO) 0.1 K/uL (0.0-0.2); BASOPHILS % (AUTO) 0.8 % (0.0-2.0); EOSINOPHILS # (AUTO) 0.1 K/uL (0.0-0.4); EOSINOPHILS % (AUTO) 1.6 % (0.0-4.0); HEMOGLOBIN 15.1 g/dL (14.0-18.0); LYMPHOCYTES # (AUTO) 2.4 K/uL (1.0-5.5); LYMPHOCYTES % (AUTO) 36.2 % (20.5-51.5); MEAN CORPUSCULAR HEMOGLOBIN 29 pg (27-31); MEAN CORPUSCULAR HGB CONC 34 % (32-36); MEAN CORPUSCULAR VOLUME 87 fL (79.0-98.0); MONOCYTES # (AUTO) 0.6 K/uL (0.0-1.0); MONOCYTES % (AUTO) 8.6 % (1.7-9.3); NEUTROPHILS # (AUTO) 3.6 K/uL (1.8-7.7); NEUTROPHILS % (AUTO) 52.8 % (40.0-70.0); PLATELET COUNT (AUTO) 287 K/uL (130-430); RED BLOOD CELL COUNT(AUTO) 5.15 MIL/uL (4.2-6.2); RED CELL DISTRIBUTION WIDTH 13.7 % (9.0-15.0); WHITE BLOOD COUNT (AUTO) 6.8 K/uL (4.8-10.8)
[2023-04-29 20:58] LABS: ALANINE AMINOTRANSFERASE 33 U/L (12-78); ALBUMIN 3.7 g/dL (3.4-4.8); ANION GAP 5 (5-15); ASPARTATE AMINOTRANSFERASE 28 U/L (10-37); CALCIUM 8.7 mg/dL (8.4-11.0); CARBON DIOXIDE 32 mmol/L (23-29); CHLORIDE 104 mmol/L (98-107); CREATININE 1.35 mg/dL (0.55-1.30); GFR AFRICAN AMERICAN 74 mL/min (>90); GLUCOSE 118 mg/dL (74-106); LIPASE 48 U/L (73-393); SODIUM SERUM 141 mmol/L (136-145); TOTAL BILIRUBIN 0.5 mg/dL (0.0-1.0); TOTAL PROTEIN, SERUM 6.7 g/dL (6.4-8.3); UREA NITROGEN, BLOOD 11 mg/dL (8-21)
[2023-04-29 21:04] LABS: GFR NON AFRICAN-AMERICAN 61 mL/min (>90)
[2023-04-29 21:05] LABS: POTASSIUM 2.8 mmol/L (3.5-5.1)
[2023-04-29] MEDS ORDERED: POTASSIUM CHLORIDE 20 MEQ in NS 250 ML IV ONE (21:30)
[2023-04-29] MEDS ORDERED: POTASSIUM CHLORIDE 20 MEQ TAB.PRT.SR PO ONE (21:30)
[2023-04-29] MEDS ORDERED: ASPIRIN 325 MG TABLET PO ONE (21:30)
[2023-04-29] MEDS ORDERED: DEXTROSE 50% JECT 50 ML DISP.SYRIN IVP PRN (21:45)
[2023-04-29] MEDS ORDERED: POTASSIUM CHLORIDE 20 MEQ TAB.PRT.SR PO PRN (21:45)
[2023-04-29] MEDS ORDERED: ACETAMINOPHEN 325 MG TABLET PO PRN (21:45)
[2023-04-29] MEDS ORDERED: KCL 20 mEq in 100 mL (PREMIX) 100 ML IV ONE (21:45)
[2023-04-29] MEDS ORDERED: INSULIN LISPRO SLIDING SCALE 100 UNITS/ML, 3 ML VIAL (humaLOG) SUBCUT PRN (21:45)
[2023-04-29] MEDS ORDERED: MORPHINE 2 MG/ML INJ. SYRINGE IVP PRN ×2 (21:45)
[2023-04-29] MEDS ORDERED: MAGNESIUM SULFATE 50 ML IV PRN (21:45)
[2023-04-29] MEDS ORDERED: MUPIROCIN 2% TOPICAL OINTMENT 22 GM NS PRN (21:45)
[2023-04-29] MEDS ORDERED: ONDANSETRON HCL 4 MG/2 ML VIAL IVP PRN (21:45)
[2023-04-29] MEDS ORDERED: DOCUSATE SODIUM 100 MG CAPSULE PO PRN (21:45)
[2023-04-29] MEDS ORDERED: LORazepam 2 MG/ML VIAL IVP PRN (21:45)
[2023-04-29] MEDS ORDERED: *LOVENOX 1MG/KG Q12H/PHARMACY XX ONE (22:00)
[2023-04-29] MEDS ORDERED: NOR10 PO (22:10)
[2023-04-29] MEDS ORDERED: LISI20TA30 PO (22:10)
[2023-04-29 23:00] VITALS: BP_SYST 135; PULSE 64; RESP 18; TEMP 97.4; O2SAT 98
[2023-04-30 03:00] VITALS: BP_SYST 142; PULSE 63; RESP 18; TEMP 98.8
[2023-04-30] MEDS ORDERED: *LOVENOX 1MG/KG Q12H/PHARMACY XX SCH (03:00)
[2023-04-30] MEDS ORDERED: ENOXAPARIN SODIUM 100 MG/ML SYRINGE SUBCUT SCH (03:30)
[2023-04-30 06:17] LABS: BASOPHILS % (AUTO) 0.7 % (0.0-2.0); EOSINOPHILS # (AUTO) 0.1 K/uL (0.0-0.4); HEMATOCRIT 45.7 % (36-54); HEMOGLOBIN 15.4 g/dL (14.0-18.0); LYMPHOCYTES # (AUTO) 1.9 K/uL (1.0-5.5); LYMPHOCYTES % (AUTO) 33.1 % (20.5-51.5); MEAN CORPUSCULAR HEMOGLOBIN 30 pg (27-31); MEAN CORPUSCULAR HGB CONC 34 % (32-36); MEAN CORPUSCULAR VOLUME 88 fL (79.0-98.0); MONOCYTES # (AUTO) 0.5 K/uL (0.0-1.0); MONOCYTES % (AUTO) 8.5 % (1.7-9.3); NEUTROPHILS # (AUTO) 3.2 K/uL (1.8-7.7); NEUTROPHILS % (AUTO) 55.7 % (40.0-70.0); PLATELET COUNT (AUTO) 291 K/uL (130-430); RED BLOOD CELL COUNT(AUTO) 5.23 MIL/uL (4.2-6.2); RED CELL DISTRIBUTION WIDTH 13.9 % (9.0-15.0); WHITE BLOOD COUNT (AUTO) 5.8 K/uL (4.8-10.8)
[2023-04-30 07:01] LABS: CALCIUM 8.2 mg/dL (8.4-11.0); CREATININE 1.02 mg/dL (0.55-1.30); POTASSIUM 3.2 mmol/L (3.5-5.1)
[2023-04-30] MEDS ORDERED: amLODIPine BESYLATE 10 MG TABLET PO ONE (07:45)
[2023-04-30 08:00] VITALS: BP_SYST 145; PULSE 72; RESP 16; TEMP 97; O2SAT 97; O2SAT 98
[2023-04-30 08:59] LABS: CHOLESTEROL 142 mg/dL (<200); HDL CHOLESTEROL 46 mg/dL (>45); TRIGLYCERIDES 96 mg/dL (30-150)
[2023-04-30] MEDS ORDERED: lisinopriL 20 MG TABLET PO SCH (09:00)
[2023-04-30] MEDS: ASPIRIN 81 MG TAB.CHEW PO SCH (09:55)
[2023-04-30] MEDS: LISINOPRIL 10 MG TABLET (PRINIVIL) PO SCH (09:56)
[2023-04-30 13:08] LABS: CLARITY/URINE CLEAR (CLEAR); COLOR,URINE YELLOW (YELLOW); GLUCOSE,URINE NEGATIVE (NEGATIVE); PROTEIN URINE NEGATIVE (NEGATIVE)
[2023-04-30 13:09] LABS: BILIRUBIN,URINE NEGATIVE (NEGATIVE); BLOOD, URINE TRACE (NEGATIVE); KETONES,URINE NEGATIVE (NEGATIVE); LEUKOCYTE ESTERASE ,URINE NEGATIVE (NEGATIVE); NITRITE, URINE NEGATIVE (NEGATIVE); UROBILINOGEN,URINE 0.2 (0.2-1.0)
[2023-04-30 13:10] LABS: BACTERIA,URINE RARE /HPF (None Seen); MUCUS,URINE 1+ /LPF (None Seen); RBC,URINE 0-3 /HPF (0-3); WBC,URINE 0-3 /HPF (0-3)
[2023-04-30 13:13] LABS: BARBITURATE, URINE NEGATIVE (NEG <=200); BENZODIAZEPINE, URINE NEGATIVE (NEG <=150); CANNABINOID, URINE NEGATIVE (NEG <=50); COCAINE, URINE NEGATIVE (NEG <=150); METHAMPHETAMINES SCREEN,URINE NEGATIVE (NEG <=500); OPIATE, URINE POSITIVE (NEG <=100); PHENCYCLIDINE SCREEN,URINE NEGATIVE (NEG <=25); URINE AMPHETAMINE NEGATIVE (NEG <=500); URINE METHADONE NEGATIVE (NEG <=200); URINE OXYCODONE SCREEN NEGATIVE (NEG <=100); URINE PROPOXYPHENE SCREEN NEGATIVE (NEG <=300)
[2023-04-30 13:14] LABS: UR TRICYCLIC ANTIDEPRESSANTS NEGATIVE (NEG <=300)
[2023-04-30 14:43] VITALS: BP_SYST 145; PULSE 68; RESP 16; TEMP 97; O2SAT 97
[2023-04-30] MEDS ORDERED: hydrALAZINE HCL 10 MG TABLET PO PRN (17:15)
[2023-04-30 18:00] VITALS: BP_SYST 141; PULSE 70; RESP 16; TEMP 97; O2SAT 96
[2023-04-30 20:00] VITALS: BP_SYST 142; PULSE 76; RESP 18; TEMP 98; O2SAT 100
[2023-04-30 23:40] VITALS: BP_SYST 140; PULSE 85; RESP 18; TEMP 97.9; O2SAT 98
[2023-05-01 06:18] VITALS: BP_SYST 120; PULSE 62; RESP 18; TEMP 97.2; O2SAT 97
[2023-05-01 07:24] LABS: BASOPHILS # (AUTO) 0.1 K/uL (0.0-0.2); BASOPHILS % (AUTO) 0.7 % (0.0-2.0); CALCIUM 8.5 mg/dL (8.4-11.0); CREATININE 1.08 mg/dL (0.55-1.30); EOSINOPHILS # (AUTO) 0.1 K/uL (0.0-0.4); EOSINOPHILS % (AUTO) 1.1 % (0.0-4.0); HEMATOCRIT 46.5 % (36-54); HEMOGLOBIN 15.9 g/dL (14.0-18.0); LYMPHOCYTES % (AUTO) 26.7 % (20.5-51.5); MEAN CORPUSCULAR HEMOGLOBIN 30 pg (27-31); MEAN CORPUSCULAR HGB CONC 34 % (32-36); MEAN CORPUSCULAR VOLUME 87 fL (79.0-98.0); MONOCYTES # (AUTO) 0.6 K/uL (0.0-1.0); MONOCYTES % (AUTO) 8.1 % (1.7-9.3); NEUTROPHILS # (AUTO) 4.8 K/uL (1.8-7.7); NEUTROPHILS % (AUTO) 63.4 % (40.0-70.0); PLATELET COUNT (AUTO) 296 K/uL (130-430); POTASSIUM 3.3 mmol/L (3.5-5.1); RED BLOOD CELL COUNT(AUTO) 5.33 MIL/uL (4.2-6.2); RED CELL DISTRIBUTION WIDTH 13.4 % (9.0-15.0); WHITE BLOOD COUNT (AUTO) 7.6 K/uL (4.8-10.8)
[2023-05-01 07:33] LABS: ALBUMIN 3.5 g/dL (3.4-4.8); TOTAL BILIRUBIN 0.5 mg/dL (0.0-1.0); TOTAL PROTEIN, SERUM 6.7 g/dL (6.4-8.3)
[2023-05-01 08:00] VITALS: BP_SYST 156; PULSE 67; RESP 18; TEMP 97.2
[2023-05-01] MEDS ORDERED: amLODIPine BESYLATE 10 MG TABLET PO SCH (09:00)
[2023-05-01] MEDS ORDERED: REGADENOSON 0.4 MG/5 ML SYRINGE IVP ONE (09:00)
[2023-05-01] MEDS: ASPIRIN 81 MG TAB.CHEW PO SCH (09:24)
[2023-05-01] MEDS: LISINOPRIL 10 MG TABLET (PRINIVIL) PO SCH (09:26)
[2023-05-01] MEDS ORDERED: LISI10TA29 PO (09:32)
[2023-05-01] MEDS ORDERED: ASPI-1393 PO (09:32)
[2023-05-01] MEDS ORDERED: NOR10 PO (09:32)
[2023-05-01 12:00] VITALS: BP_SYST 154; PULSE 69; RESP 18; TEMP 98.6
[2023-05-01 14:26] VITALS: BP_SYST 154; PULSE 69; RESP 18; TEMP 98.6; O2SAT 98
== END 2023-05-01 15:05 | disposition home or self-care (01) | DRG 190 ==
LOC: SED 19:10 → STU 21:43
PROVIDERS: ADMIT Family Medicine; ATTEND Family Medicine
DX: I24.9 Acute ischemic heart disease, unspecified (principal); I21.A1 Myocardial infarction type 2; N17.0 Acute kidney failure with tubular necrosis; I16.0 Hypertensive urgency; E83.51 Hypocalcemia; I10 Essential (primary) hypertension; K57.90 Diverticulosis of intestine, part unspecified, without perforation or abscess without bleeding; E87.6 Hypokalemia; Z90.49 Acquired absence of other specified parts of digestive tract; Z91.148 Patient's other noncompliance with medication regimen for other reason; Z79.899 Other long term (current) drug therapy; Z87.891 Personal history of nicotine dependence; Z79.82 Long term (current) use of aspirin
CPT/HCPCS: 36415; 70450-TC; 71045; 76376; 80048; 80053; 80061; 80307; 81000; 82962; 83690; 83735; 84443; 84484; 85025; 85379; 93005; 93017; 93306; 96365; 96375; 99285; A9500; G0378; J1650; J1885; J2270; J2405; J2785; J3480; J7050

== ENCOUNTER 2023-05-16 20:49 | Emergency (ER) | payer MEDICAID ==
[~2023-05-16] VITALS: Ht 177.8 cm; Wt 104.3 kg
[~2023-05-16 20:49] MED LIST changes: -AMLO5TAB4 PO; +ASPI-1393 PO; -DICY10CA13 PO; +LISI10TA29 PO; +NOR10 PO; -ONDA-8 TL
[2023-05-16 21:05] VITALS: BP_SYST 167; PULSE 85; RESP 16; TEMP 97.9; O2SAT 98
[2023-05-16 22:03] LABS: BASOPHILS # (AUTO) 0.1 K/uL (0.0-0.2); BASOPHILS % (AUTO) 0.7 % (0.0-2.0); EOSINOPHILS # (AUTO) 0.1 K/uL (0.0-0.4); EOSINOPHILS % (AUTO) 0.6 % (0.0-4.0); HEMATOCRIT 46.8 % (36-54); HEMOGLOBIN 15.8 g/dL (14.0-18.0); MEAN CORPUSCULAR HEMOGLOBIN 29 pg (27-31); MEAN CORPUSCULAR HGB CONC 34 % (32-36); MEAN CORPUSCULAR VOLUME 87 fL (79.0-98.0); MONOCYTES # (AUTO) 0.9 K/uL (0.0-1.0); MONOCYTES % (AUTO) 6.9 % (1.7-9.3); NEUTROPHILS # (AUTO) 9.5 K/uL (1.8-7.7); NEUTROPHILS % (AUTO) 69.8 % (40.0-70.0); PLATELET COUNT (AUTO) 331 K/uL (130-430); RED BLOOD CELL COUNT(AUTO) 5.38 MIL/uL (4.2-6.2); RED CELL DISTRIBUTION WIDTH 13.6 % (9.0-15.0); WHITE BLOOD COUNT (AUTO) 13.7 K/uL (4.8-10.8)
[2023-05-16 22:16] LABS: ALANINE AMINOTRANSFERASE 34 U/L (12-78); ALBUMIN 4.1 g/dL (3.4-4.8); ANION GAP 10 (5-15); ASPARTATE AMINOTRANSFERASE 21 U/L (10-37); CALCIUM 8.9 mg/dL (8.4-11.0); CARBON DIOXIDE 26 mmol/L (23-29); CHLORIDE 103 mmol/L (98-107); CREATININE 1.21 mg/dL (0.55-1.30); GFR AFRICAN AMERICAN 84 mL/min (>90); GFR NON AFRICAN-AMERICAN 69 mL/min (>90); GLUCOSE 154 mg/dL (74-106); POTASSIUM 3.1 mmol/L (3.5-5.1); SODIUM SERUM 139 mmol/L (136-145); TOTAL BILIRUBIN 0.4 mg/dL (0.0-1.0); TOTAL PROTEIN, SERUM 7.4 g/dL (6.4-8.3); UREA NITROGEN, BLOOD 10 mg/dL (8-21)
[2023-05-17] MEDS ORDERED: NACL 0.9% 1,000 ML IV ONE
[2023-05-17] MEDS ORDERED: MORPHINE 4 MG INJ. 4 MG/ML VIAL IVP ONE
[2023-05-17] MEDS ORDERED: ONDANSETRON HCL 4 MG/2 ML VIAL IVP ONE
[2023-05-17 00:29] LABS: BILIRUBIN,URINE NEGATIVE (NEGATIVE); CLARITY/URINE Clear (CLEAR); COLOR,URINE YELLOW (YELLOW); GLUCOSE,URINE NEGATIVE (NEGATIVE); KETONES,URINE NEGATIVE (NEGATIVE); LEUKOCYTE ESTERASE ,URINE NEGATIVE (NEGATIVE); NITRITE, URINE NEGATIVE (NEGATIVE); PROTEIN URINE NEGATIVE (NEGATIVE); UROBILINOGEN,URINE 0.2 (0.2-1.0)
[2023-05-17 00:40] LABS: BLOOD, URINE TRACE (NEGATIVE)
[2023-05-17 01:01] LABS: BARBITURATE, URINE NEGATIVE (NEG <=200); BENZODIAZEPINE, URINE NEGATIVE (NEG <=150); CANNABINOID, URINE POSITIVE (NEG <=50); COCAINE, URINE NEGATIVE (NEG <=150); METHAMPHETAMINES SCREEN,URINE NEGATIVE (NEG <=500); OPIATE, URINE NEGATIVE (NEG <=100); PHENCYCLIDINE SCREEN,URINE NEGATIVE (NEG <=25); URINE AMPHETAMINE NEGATIVE (NEG <=500); URINE METHADONE NEGATIVE (NEG <=200); URINE OXYCODONE SCREEN NEGATIVE (NEG <=100); URINE PROPOXYPHENE SCREEN NEGATIVE (NEG <=300)
[2023-05-17 01:02] LABS: UR TRICYCLIC ANTIDEPRESSANTS NEGATIVE (NEG <=300)
[2023-05-17] MEDS ORDERED: HYDROmorphone 1 MG/ML INJ. CARTRIDGE IVP ONE ×2 (01:15→05:15)
[2023-05-17] MEDS ORDERED: HYDROmorphone 1 MG/ML INJ. CARTRIDGE ONE (01:35)
[2023-05-17 04:56] LABS: BACTERIA,URINE RARE /HPF (None Seen)
[2023-05-17] MEDS ORDERED: HYDR-3927 PO (07:37)
[2023-05-17] MEDS ORDERED: LOPE2CAP PO (07:37)
[2023-05-17 08:09] VITALS: BP_SYST 149; PULSE 80; RESP 18; TEMP 98.4; O2SAT 98
== END 2023-05-17 07:57 | disposition home or self-care (01) ==
LOC: SED 20:49
DX: R10.10 Upper abdominal pain, unspecified (principal); I10 Essential (primary) hypertension; F17.200 Nicotine dependence, unspecified, uncomplicated; F12.90 Cannabis use, unspecified, uncomplicated; Z79.899 Other long term (current) drug therapy
CPT/HCPCS: 99285; 71045; 80307; 80053; 83880; 83690; 85025; 87081; 84484; 36415; 93005; 81000; 74177; 96374; 96375; 96361; 76376; 96376; J2405; J1170; J2270; Q9967; J7030

== ENCOUNTER 2023-06-14 13:26 | Emergency (ER) | payer SELFPAY ==
[~2023-06-14] VITALS: Ht 177.8 cm; Wt 104.3 kg
[2023-06-14 13:26] VITALS: BP_SYST 133; PULSE 81; RESP 18; TEMP 98.6; O2SAT 97
[~2023-06-14 13:26] MED LIST changes: +HYDR-3927 PO; +LOPE2CAP PO
[2023-06-14] MEDS ORDERED: KETOROLAC TROMETHAMINE 60 MG/2 ML VIAL IM ONE (15:00)
[2023-06-14 16:01] LABS: CALCIUM 9.2 mg/dL (8.4-11.0); CREATININE 1.09 mg/dL (0.55-1.30); POTASSIUM 3.2 mmol/L (3.5-5.1)
[2023-06-14 16:05] LABS: ALBUMIN 3.5 g/dL (3.4-4.8); TOTAL BILIRUBIN 0.4 mg/dL (0.0-1.0); TOTAL PROTEIN, SERUM 6.6 g/dL (6.4-8.3)
[2023-06-14 16:08] LABS: BASOPHILS # (AUTO) 0.1 K/uL (0.0-0.2); BASOPHILS % (AUTO) 0.5 % (0.0-2.0); EOSINOPHILS # (AUTO) 0.1 K/uL (0.0-0.4); EOSINOPHILS % (AUTO) 1.2 % (0.0-4.0); HEMOGLOBIN 14.6 g/dL (14.0-18.0); LYMPHOCYTES # (AUTO) 2.6 K/uL (1.0-5.5); LYMPHOCYTES % (AUTO) 26.1 % (20.5-51.5); MEAN CORPUSCULAR HEMOGLOBIN 30 pg (27-31); MEAN CORPUSCULAR HGB CONC 34 % (32-36); MEAN CORPUSCULAR VOLUME 87 fL (79.0-98.0); MONOCYTES # (AUTO) 0.9 K/uL (0.0-1.0); MONOCYTES % (AUTO) 8.8 % (1.7-9.3); NEUTROPHILS # (AUTO) 6.2 K/uL (1.8-7.7); NEUTROPHILS % (AUTO) 63.4 % (40.0-70.0); PLATELET COUNT (AUTO) 308 K/uL (130-430); RED BLOOD CELL COUNT(AUTO) 4.93 MIL/uL (4.2-6.2); RED CELL DISTRIBUTION WIDTH 13.5 % (9.0-15.0); WHITE BLOOD COUNT (AUTO) 9.8 K/uL (4.8-10.8)
[2023-06-14] MEDS ORDERED: IBUP-1971 PO (16:49)
[2023-06-14] MEDS ORDERED: AUG875 PO (16:49)
[2023-06-14] MEDS ORDERED: ONDA-8 TL (16:49)
[2023-06-14 17:06] LABS: BILIRUBIN,URINE NEGATIVE (NEGATIVE); BLOOD, URINE NEGATIVE (NEGATIVE); CLARITY/URINE CLEAR (CLEAR); COLOR,URINE YELLOW (YELLOW); GLUCOSE,URINE NEGATIVE (NEGATIVE); KETONES,URINE NEGATIVE (NEGATIVE); LEUKOCYTE ESTERASE ,URINE NEGATIVE (NEGATIVE); NITRITE, URINE NEGATIVE (NEGATIVE); PH,URINE 6.5 (5.0-8.0); PROTEIN URINE NEGATIVE (NEGATIVE); UROBILINOGEN,URINE 0.2 (0.2-1.0)
[2023-06-14 17:08] VITALS: BP_SYST 133; PULSE 81; RESP 18; TEMP 98.6; O2SAT 97
== END 2023-06-14 17:06 | disposition home or self-care (01) ==
LOC: SED 13:26
DX: K57.92 Diverticulitis of intestine, part unspecified, without perforation or abscess without bleeding (principal); R10.32 Left lower quadrant pain; K21.9 Gastro-esophageal reflux disease without esophagitis; I10 Essential (primary) hypertension; Z79.899 Other long term (current) drug therapy
CPT/HCPCS: 99285; 74176; 80053; 83690; 85025; 36415; 76376; 96372; 81003; J1885